=== PATIENT | male | born 1990 | race Caucasian/White ===

== ENCOUNTER 2017-01-28 12:49 | Emergency (ER) | payer OTHER ==
[~2017-01-28] VITALS: Ht 182.9 cm; Wt 84.8 kg
[2017-01-28 13:09] VITALS: TEMP 36.8; Ht 182.9 cm; Wt 84.8 kg
[2017-01-28] MEDS ORDERED: IBUP-1050 PO (13:29)
[2017-01-28] MEDS ORDERED: HYDR-5688 PO (14:19)
[2017-01-28] MEDS ORDERED: PENI500T2 PO (14:19)
--- NOTE | 2017-01-28 14:20 | EMERGENCY ROOM VISIT NOTE ---
ED Visit Note First contact with patient: 13:57 CHIEF COMPLAINT: Right lower dental pain 1 week HISTORY OF PRESENT ILLNESS: Patient is a 26-year-old white male who presents emergency department for evaluation of right lower dental pain. The pain is coming from his right lower wisdom tooth. He states that the tooth erupted many years ago, he states that it made his mouth feel a little bit crowded, but he did not have any problems until it broke a couple of months ago. He states that he had to be careful cleaning it, and had to rinse to remove food particles from getting stuck in the tooth, but otherwise had no problems. He has noted progressively worsening aching pain over the last week. It has been on alleviated by Tylenol and ibuprofen. He states the pain radiates down his jaw and towards his ear, and he woke up today with swelling in the right jaw line. He reports a metallic taste in his mouth, denies fever or chills. He has not seen a dentist in some time and has not contacted one for this acute issue. He rates his pain a 2/10. REVIEW OF SYSTEMS: Review of systems as per HPI. All other systems reviewed were negative. At least 6 systems reviewed. PMH: Electronic medical records are reviewed and summarized as above/below. See Problem List. SOCIAL HISTORY: Patient lives at home. Smoker. PHYSICAL EXAM: Vital Signs: Reviewed Nurse's notes. CONSTITUTIONAL: Patient is a well-appearing 6-year-old white male who is awake and alert and in no acute distress. Vital signs are stable. EARS: Tympanic membranes intact, not inflamed, have normal contour. External canals clear. MOUTH: Overall the patient has good dentition. The right lower rear molar in question has an obvious cavity, is fractured medially, and is tender to percussion. There is slight swelling along the gumline although no focal abscess. Mucous membranes moist, no lesions, tongue and gums appear normal. THROAT: No pharyngeal injection, exudates, or tonsillar hypertrophy. Airway is patent. No trismus noted. FACE: No facial swelling is appreciated. No cellulitic changes. NECK: No lymphadenopathy. ED course: The patient was seen and evaluated as above. He has no old records for review. Patient was provided a prescription for Pen-Vee K and [place]. He is encouraged to follow up with a dentist for definitive care and management, as he will likely require extraction by an oral surgeon. He will check with his insurance provider for dentists who are covered. He does not have any evidence for facial cellulitis, Vito's angina or drainable abscess at this time. [facility], and there were no red flags noted. Medication reconciliation: I attest that I have personally reviewed the patient' s current medication list. Blood pressure screening : Patient was found to have normal blood pressure on screening and does not require follow-up. Problem List Medical Problems: (1) Asthma Status: Chronic Surgical Problems: (1) History of appendectomy Status: Resolved Current/Historical Medications Scheduled Penicillin V Potassium (Veetids), 500 MG PO QID Scheduled PRN Hydrocodone/Acetaminophen 5MG/325MG ([place] 5MG/325MG), 1-2 TABLETS PO Q4 PRN for Pain Ibuprofen (Advil), 200-600 MG PO Q4H PRN for Pain Allergies Coded Allergies: No Known Allergies (Unverified , 01/28/17) Vital Signs Date Time Temp Pulse Resp B/P (MAP) Pulse Ox O2 Delivery O2 Flow Rate FiO2 01/28/17 14:25 86 18 128/83 99 Room Air 01/28/17 13:09 36.8 88 20 121/80 98 Room Air Departure Information Impression Primary Impression: Periapical abscess Prescriptions Penicillin V Potassium (VEETIDS) 500 Mg Tab 500 MG PO QID, #40 TAB Prov: Suyapa Villanueva PA 01/28/17 Hydrocodone/Acetaminophen 5MG/325MG ([place] 5MG/325MG) Tab 1-2 TABLETS PO Q4 Y for Pain, #20 TAB For Initial Treatment Prov: Suyapa Villanueva PA 01/28/17 Referrals No Doctor, Assigned (PCP) Patient Instructions [facility] Additional Instructions Penicillin 500mg: Take one pill four times daily for 10 days for your dental infection. All antibiotics can cause diarrhea. If this occurs and you feel worse or it does not resolve in 1-2 days follow up with your doctor or return to the Emergency Department as this could be signs of serious underlying problems. Any medication can cause an allergic reaction, stop the pills immediately and return to the ER for rash, hives, breathing difficulties, or swelling. Ibuprofen(Motrin, Advil) may be used for fever or pain. Use 600mg every six hours as needed. Take with food. Avoid using more than 2400mg in a 24 hour period. Do not use 2400mg per day for more than three consecutive days without physician direction. Prolonged inappropriate use can lead to stomach upset or ulcers. (AND/OR) Acetaminophen(Tylenol) may be used for fever or pain. Use 1000mg every six hours as needed. Avoid using more than 4000mg in a 24 hour period. Hydrocodone/Acetaminophen ([place]) 5/325 mg: Take 1-2 pills every four hours for breakthrough pain. Avoid alcohol, operating machinery or dangerous equipment, working on ladders or roofs, DRIVING, or situations where being under the influence may be dangerous. It is recommended to use an [id number] stool softener such as Colace, 100mg twice daily while taking this medication to avoid constipation. Saltwater gargles after meals and before bedtime. Soft foods. Orajel/Anbesol/clove oil as needed for discomfort. Followup with your dentist for definitive management. You may also follow up with your primary care physician for pain/care management until you can be seen by your dentist.
[2017-01-28 14:25] VITALS: BP 128/83; PULSE 86; O2SAT 99
== END 2017-01-28 14:31 | disposition home or self-care (01) ==
LOC: C.EDB 12:51 → C.EDD 14:31
DX: K04.7 Periapical abscess without sinus (principal); J45.909 Unspecified asthma, uncomplicated; F17.200 Nicotine dependence, unspecified, uncomplicated; Z98.890 Other specified postprocedural states

== ENCOUNTER 2017-02-06 21:54 | Emergency (ER) | payer OTHER ==
[~2017-02-06] VITALS: Ht 182.9 cm; Wt 86.9 kg
[~2017-02-06 21:54] MED LIST: HYDR-5688 PO; IBUP-1050 PO; PENI500T2 PO
[2017-02-06 21:56] VITALS: TEMP 37; Ht 182.9 cm; Wt 86.9 kg
[2017-02-06] MEDS ORDERED: HYDR-5688 PO (22:09)
[2017-02-06] MEDS ORDERED: PENICILLIN HOME PACK 500MG (4 DOSES)BTL PO ONE (22:15)
[2017-02-06] MEDS ORDERED: NORCO 5/325MG HOME PACK PO ONE (22:15)
[2017-02-06 22:22] VITALS: BP 140/78; PULSE 93; O2SAT 97
--- NOTE | 2017-02-07 00:09 | EMERGENCY ROOM VISIT NOTE ---
ED Visit Note First contact with patient: 21:59 CHIEF COMPLAINT: Toothache HISTORY OF PRESENT ILLNESS: This 26-year-old male patient presented to the emergency department with a progressive toothache for past 2 weeks. The patient initially was seen here in this department and given Pen-Vee K and Vicodin. He states this did help his symptoms, but they have returned after completion of the antibiotics. The pain is coming from her right lower molar that initially was cracked, but is now broken. The pain is now steady and severe and radiates to the face. The patient does not have a dentist appointment set up as he is trying to establish his insurance. They rate their pain a 10/10 and the ibuprofen and Tylenol they have been taking has not relieved the pain. Denies facial swelling or fever. The patient denies any discharge from the mouth. REVIEW OF SYSTEMS: A 6 system review of systems was completed with positives and pertinent negatives listed in the HPI. ALLERGIES: No known medication allergies MEDICATIONS: No chronic medications PMH: Otherwise healthy SOCIAL HISTORY: Lives locally PHYSICAL EXAM: Vitals are noted on the nurse's note and reviewed by myself. Vital signs stable. GENERAL: White male, in no acute distress, nondiaphoretic, well-developed well- nourished. Mouth: The right lower wisdom, #32 tooth is very carious and fractured anteriorly. No gumline edema or signs of an abscess. The remainder of the pharynx and tonsils are without erythema, edema, or exudate. The airway is patent. There is no facial swelling, cervical or submandibular lymphadenopathy. The patient appears uncomfortable and in pain. The patient has overall fair dental hygiene. EARS: External auditory canals clear, tympanic membranes pearly lacey without erythema or effusion bilaterally. HEART: Regular rate and rhythm without murmur gallop or rub LUNG: Clear to auscultation bilateral ED COURSE: Physical exam and history were performed. Nursing notes and EMR were reviewed. The patient appears to have a partially fractured right lower molar. He does not have obvious abscess. The patient was reviewed in the PDMP and was without significant findings. He has 1 previous lifetime visit to the ER for dental pain. I will provide him a course of Pen-Vee K and Vicodin for pain. The patient was thoroughly educated on the importance of establishing with a dentist for definitive care. He was otherwise invited back to the ER with any new, worsening, or concerning symptoms. Problem List Medical Problems: (1) Asthma Status: Chronic Surgical Problems: (1) History of appendectomy Status: Resolved Current/Historical Medications Scheduled Penicillin V Potassium (Veetids), 500 MG PO QID Scheduled PRN Hydrocodone/Acetaminophen 5MG/325MG ([place] 5MG/325MG), 1-2 TABLET PO Q6 PRN for Pain Ibuprofen (Advil), 200-600 MG PO Q4H PRN for Pain Allergies Coded Allergies: Fish (Verified Allergy, Severe, ANAPHYLAXIS, 02/06/17) Vital Signs Date Time Temp Pulse Resp B/P (MAP) Pulse Ox O2 Delivery O2 Flow Rate FiO2 02/06/17 22:22 93 140/78 97 02/06/17 21:56 37.0 102 20 139/79 96 Departure Information Impression Primary Impression: Pain, dental Dispostion Home / Self-Care Condition GOOD Prescriptions Hydrocodone/Acetaminophen 5MG/325MG ([place] 5MG/325MG) Tab 1-2 TABLET PO Q6 Y for Pain, #20 TAB For Initial Treatment Prov: Bartolome Noel PA-C 02/06/17 Forms HOME CARE DOCUMENTATION FORM, IMPORTANT VISIT INFORMATION Patient Instructions [facility] Additional Instructions You were seen and evaluated today on an emergency basis only. This is not a substitute for, or an effort to provide, complete comprehensive medical care. It is not possible to recognize and treat all injuries or illnesses in a single emergency department visit. For this reason it is recommended that you followup with a dentist as soon as possible for definitive care. For baseline pain relief you may alternate ibuprofen and acetaminophen every 4 hours for pain control. Take 600 mg ibuprofen (Advil) and then 4 hours later take 1000 mg acetaminophen (Tylenol). Do not take more than 3000 mg acetaminophen in a single day. Take Pen-Vee K 500 mg 4 times daily for the next 10 days. [place] (hydrocodone/acetaminophen) 5/325 mg ONE or TWO every 6 hours as needed for worsening breakthrough pain. Do not drink or drive on [place]. This medication will likely make you tired. Do not take [place] and Tylenol at the same time as both contain acetaminophen. [place] may cause constipation. You may wish to take an [id number] stool softener like Colace if this occurs. The ER is not able to provide ongoing prescriptions of controlled medications. Your primary care physician may be able to provide this service to you. You are welcome to return to the emergency department anytime with new, worsening, or concerning symptoms.
== END 2017-02-06 22:23 | disposition home or self-care (01) ==
LOC: C.EDB 21:55 → C.EDD 22:23
DX: S02.5XXA Fracture of tooth (traumatic), initial encounter for closed fracture (principal); X58.XXXA Exposure to other specified factors, initial encounter; J45.909 Unspecified asthma, uncomplicated